=== PATIENT | female | born 1970 | race African-American/Black ===

== ENCOUNTER 2016-07-11 03:02 | Emergency (ER) | payer OTHER ==
--- NOTE | 2016-07-11 03:49 | PROVIDER DOCUMENTATION ---
[facility] General - General Chief Complaint: Cold Symptoms Stated Complaint: COUGH/MOUTH BURNING Time Seen by Provider: 07/11/16 03:44 Source: patient Allergies/Adverse Reactions: Patient Allergies Allergy/AdvReac Type Severity Reaction Status Date / Time aspirin AdvReac Unknown Verified 07/11/16 03:12 Home Medications: Home Medication List Medication Instructions Recorded Confirmed Last Taken Type Glimepiride 1 tab PO BID 07/11/16 07/11/16 Unknown History Guaifenesin/Codeine [Robitussin-AC] 10 ml PO Q4H PRN PRN #8 oz 07/11/16 Unknown Rx Ketorolac [Toradol] 10 mg PO Q6H PRN PRN #20 tablet 07/11/16 Unknown Rx Metformin [Glucophage] 1 tab PO BID 07/11/16 07/11/16 Unknown History - History of Present Illness-EENT General Nature of Presenting Problem: sick x 2 days cough hoarse sore throat [facility] Location: reports: throat Quality of Pain: reports: aching, stabbing Severity: reports: moderate Onset/Duration: reports: 2 days ago Timing: reports: still present Prearrival Treatment: Initiated over the counter meds Associated Symptoms: reports: cough, malaise, nasal congestion/drainage Locality of Occurance: School Similar Symptoms Previously?: No Recently seen or treated by another doctor?: No Review of Systems - Adult - REVIEW OF SYSTEMS - ADULT Constitutional: reports: chills, fever, fatique Eyes: reports: no symptoms reported Ears, Nose, Mouth & Throat: reports: sinus problem, hoarseness, throat pain Cardiovascular: reports: no symptoms reported Respiratory: reports: cough. denies: hemoptysis, pleurisy, shortness of breath Gastrointestinal: reports: no symptoms reported Genitourinary: reports: no symptoms reported Musculoskeletal: reports: no symptoms reported Integumentary: reports: no symptoms reported Neurological: reports: no symptoms reported Endocrine: reports: no symptoms reported Hematologic/Lymphatic: reports: no symptoms reported Allergic/Immunologic: reports: no symptoms reported Past History - Adult - PAST MEDICAL HISTORY-ADULT Review of Records: reports: Nursing Assessment Review, Medications Reviewed, Social history reviewed & non-contributory. Major Childhood Illnesses: reports: denies history Cardiovascular: reports: denies history, hyperlipidemia. denies: HTN Respiratory: reports: denies history Gastrointestinal: reports: denies history Genitourinary: reports: denies history Musculoskeletal: reports: denies history Neurological: reports: headaches/migraines Diabetes Type: Type 2 Diabetes controlled by:: PO Meds Other Conditions: reports: denies history - PRIOR SURGERIES/PROCEDURES Surgical/Procedure History: reports: - SOCIAL HISTORY Smoking: non-smoker Physical Exam- EENT - Physical Exam EENT Initial Vital Signs Reviewed: Yes General Appearance: appears well Eye Exam: bilateral eye: normal inspection, PERRL, EOMI Ear Exam: bilateral ear: auricle normal, canal normal, TM normal Nasal Exam: normal inspection Throat Exam: pharynx normal Neck: supple, lymphadenopathy Respiratory: lungs clear, no respiratory distress Cardiovascular: regular rate, rhythm Abdominal Exam: soft Lymphatic: no adenopathy Back Exam: normal inspection, no CVA tenderness Extremity: normal range of motion Integumentary: normal color, normal turgor Neurologic: grossly normal Psych/Mental Status: normal mood/affect Progress - PLAN OF CARE/RESULTS Progress/Plan/Lab Results: Laboratory Tests 07/11/16 07/11/16 07/11/16 03:50 03:50 04:02 WBC 6.61 RBC 5.27 Hgb 13.6 Hct 41.0 MCV 77.8 L MCH 25.8 L MCHC 33.2 RDW Std Deviation 14.5 Plt Count 272 MPV 10.8 H Immature Gran % (Auto) 0.3 Neut % (Auto) 62.7 Lymph % (Auto) 25.0 [place] % (Auto) 10.3 H Eos % (Auto) 1.2 Baso % (Auto) 0.5 Immature Gran # (Auto) 0.02 Neut # (Auto) 4.15 Lymph # (Auto) 1.65 [place] # (Auto) 0.68 H Eos # (Auto) 0.08 Baso # (Auto) 0.03 Influenza A (Rapid) NEGATIVE Influenza B (Rapid) NEGATIVE Group A Strep Rapid NEGATIVE Orders Category Date Time Status CBC WITH DIFF [HEME] Stat Lab 07/11/16 04:[address] Stat Lab 07/11/16 03:[address] Stat Lab 07/11/16 03:50 Completed Vital Signs - 24 hr 07/11/16 03:06 Temperature 98.1 F Pulse Rate 116 H Respiratory 20 Rate Blood Pressure 132/85 O2 Sat by Pulse 98 Oximetry Departure - Departure Time of Disposition Order: 04:38 DIAGNOSIS: Viral upper respiratory illness Disposition: HOME 01 Certified Medical Emergency: Emergent Condition: Stable Additional Instructions: ED Follow Up Instructions: You have been treated by a care provider in the Emergency Department. These instructions are being provided to you so you can have an understanding of how to care for yourself upon discharge. Upon discharge from the Emergency Department, you are responsible for making arrangements for follow-up care by a physician of your choice. Take all prescribed medications as directed. Return to the Emergency Department immediately for any new or worsening symptoms. You may call the Physician Referral phone number at [phone] to obtain a list of Physicians who are taking new patients. Prescriptions: Guaifenesin/Codeine [Robitussin-AC] 10 ml PO Q4H PRN PRN #8 oz PRN Reason: Cough Ketorolac [Toradol] 10 mg PO Q6H PRN PRN #20 tablet PRN Reason: Pain
[2016-07-11 04:05] LABS: MANUAL DIFF NEEDED? NO
[2016-07-11 04:08] LABS: BASO% 0.5 % (0.0-0.8); EOS# 0.08 X1000 (0.0-0.7); EOS% 1.2 % (0.0-10.0); HEMOGLOBIN 13.6 g/dL (12.0-16.0); IMM GRAN# 0.02 X1000 (0.0-0.04); IMM GRAN% 0.3 % (0.0-0.5); LYMPH# 1.65 X1000 (1.2-3.4); MCH 25.8 PG (27-31); MCHC 33.2 g/dL (33-37); MCV 77.8 FL (81-99); MONO# 0.68 X1000 (0.11-0.59); MONO% 10.3 % (1.7-9.3); MPV 10.8 FL (7.4-10.4); NEUT% 62.7 % (42.2-75.2); PLT 272 X1000 (130-400); RBC 5.27 XMIL (4.2-5.4)
[2016-07-11] MEDS ORDERED: TORADOL PO ONE (04:41)
[2016-07-11 04:54] VITALS: BP 140/88
== END 2016-07-11 04:53 | disposition home or self-care (01) ==
LOC: P.ED 03:02
DX: J06.9 Acute upper respiratory infection, unspecified (principal); R05 Cough; R49.0 Dysphonia; J02.9 Acute pharyngitis, unspecified; R53.81 Other malaise; R09.81 Nasal congestion; R50.9 Fever, unspecified; R53.83 Other fatigue; E78.5 Hyperlipidemia, unspecified; R51 Headache; E11.9 Type 2 diabetes mellitus without complications; Z79.899 Other long term (current) drug therapy
CPT/HCPCS: 85025; 87081; 87430; 87804